=== PATIENT | male | born 1980 | race African-American/Black ===

== ENCOUNTER 2020-06-06 06:01 | Emergency (ER) | payer MEDICAID, OTHER ==
[~2020-06-06] VITALS: Ht 175.3 cm; Wt 86.0 kg
[2020-06-06] MEDS ORDERED: ACETAMINOPHEN 325MG TABLET PO STA (06:23)
[2020-06-06] MEDS ORDERED: ONDANSETRON 4MG ODT PO STA (06:23)
[2020-06-06 08:17] VITALS: BP 136/83
== END 2020-06-06 08:38 | disposition home or self-care (01) ==
LOC: ER 07:32
DX: B34.9 Viral infection, unspecified (principal)
CPT/HCPCS: 71045; 99283; Q0162

== ENCOUNTER 2023-03-22 06:45 | Emergency (ER) | payer OTHER ==
[~2023-03-22] VITALS: Ht 175.3 cm; Wt 83.8 kg
[2023-03-22 07:12] VITALS: BP 116/68; PULSE 68; RESP 16; O2SAT 98
[2023-03-22 07:30] VITALS: TEMP 98.7
[2023-03-22] MEDS ORDERED: ACETAMINOPHEN 325MG TABLET PO ONE (07:30)
[2023-03-22] MEDS ORDERED: TOPUD PO (09:07)
== END 2023-03-22 10:11 | disposition home or self-care (01) ==
LOC: ER 06:45
DX: M54.50 Low back pain, unspecified (principal)
CPT/HCPCS: 71045; 99283

== ENCOUNTER 2025-03-15 18:21 | Emergency (ER) | payer MEDICAID, OTHER ==
[~2025-03-15] VITALS: Ht 185.4 cm; Wt 99.0 kg
[~2025-03-15 18:21] MED LIST: TOPUD PO
[2025-03-15 18:29] VITALS: O2SAT 98
[2025-03-15] MEDS: BACITRACIN ZINC OINT UDPKT TOP ONE (19:38)
[2025-03-15] MEDS: LIDOCAINE HCL/EPINEPHRINE 1%-EPI 1:100,000 20ML VIAL INFIL ONE (19:38)
[2025-03-15] MEDS: HYDROCODONE/ACETAMINOPHEN 5/325MG TABLET PO ONE (19:38)
[2025-03-16] MEDS ORDERED: IBUP-1455 MT (00:40)
[2025-03-16] MEDS ORDERED: CEPH500C2 MT (00:40)
[2025-03-16] MEDS ORDERED: BO1 TP (00:40)
[2025-03-16] MEDS ORDERED: HYDR-4001 MT (00:40)
[2025-03-16 01:00] VITALS: BP 105/81; PULSE 65; RESP 16; TEMP 36.6; O2SAT 99
== END 2025-03-16 01:00 | disposition home or self-care (01) ==
LOC: ER 18:47
DX: S51.811A Laceration without foreign body of right forearm, initial encounter (principal); Z03.89 Encounter for observation for other suspected diseases and conditions ruled out; W20.8XXA Other cause of strike by thrown, projected or falling object, initial encounter; W25.XXXA Contact with sharp glass, initial encounter; Y93.89 Activity, other specified; Y92.89 Other specified places as the place of occurrence of the external cause; Y99.8 Other external cause status
CPT/HCPCS: 99284; 12035; 73090; J2004